=== PATIENT | male | born 1965 | race Caucasian/White ===

== ENCOUNTER 2025-03-07 08:52 | Emergency (ER) | payer OTHER, SELFPAY ==
[2025-03-07 09:10] VITALS: BP 157/93
[2025-03-07 09:33] LABS: Hematocrit 48.6 % (39.0-52.0); Hemoglobin 16.9 g/dL (13.0-18.0); Mean Corp Hgb Conc. 34.8 g/dL (33.0-37.0); Mean Corpuscular Volume 82.8 fL (80.0-94.0); Nucleated Red Blood Cells % 0 % (-); Platelet Count 289 10^3/uL (130-400); Red Cell Dist. Width 12.7 % (11.5-14.5)
[2025-03-07 09:56] LABS: ALT (SGPT) 26 U/L (0-50); AST (SGOT) 34 U/L (17-59); Albumin 5.2 g/dl (3.5-5.0); Alkaline Phosphatase 46 U/L (38-126); Blood Urea Nitrogen 23 mg/dl (9-20); Calcium 10.0 mg/dl (8.4-10.2); Carbon Dioxide 27 mmol/L (22-30); Chloride 102 mmol/L (98-107); Glucose 105 mg/dl (70-99); Potassium 3.6 mmol/L (3.5-5.1); Sodium 139 mmol/L (135-145); Total Protein 7.9 g/dl (6.3-8.2); eGFR > 60.00
[2025-03-07 10:00] LABS: Troponin I < 0.012 ng/ml
[2025-03-07 11:37] VITALS: BP 139/98
--- NOTE | 2025-03-07 11:45 | ED.GENMED ---
History of Present Illness
General
Chief Complaint: Blood Pressure Problem
Source: patient
Exam Limitations: none
Time Seen by Provider: 03/07/25 11:20
History of Present Illness
History of Present Illness:
59-year-old male with history of hypertension on amlodipine 5 mg daily and losartan/HCTZ daily presents with overall not well sensation of the past several days with some fatigue after exertion. He notes a headache. He also notes elevated blood
pressure readings. He was getting readings as high as 170/100. No fever. No rash or tick bites. Spoke with his cardiology office and he was told to take an additional amlodipine yesterday which she did and sometimes this helps however this
morning it was still elevated.
Phy Exam
Physical Exam
Physical Exam:
General: Well-appearing male no acute respiratory distress
HEENT: Normocephalic atraumatic heart: Regular rate and rhythm
Lungs: Clear no wheeze
Extremities: No cyanosis or edema
Course
Orders/Labs/Results
Orders:
Orders
03/07/25 09:05
Electrocardiogram (*1) Urgent
Reason for Study: Vertigo / Dizzy
EKG- Treatment ONCE
03/07/25 09:27
Complete Blood Count/With Diff Urgent
Comprehensive Metabolic Panel Urgent
Troponin I Urgent
03/07/25 09:30
Lyme Progressive Urgent
Comment: LYME PROGRESSIVE ADDED ON BY FLOOR [id number] 03-07-25
03/07/25 11:35
Add On- LAB Urgent
Tests Added?: lyme progressive
03/07/25 11:51
COVID-19 Antigen Urgent
Source: Nasal Swab
Abnormal Lab Results
03/07/25
09:27
BUN 23 H mg/dl
(9-20)
Glucose 105 H mg/dl
(70-99)
Albumin 5.2 H g/dl
(3.5-5.0)
03/07/25 09:27
03/07/25 09:27
Vital Signs
Initial and Last Documented VS:
Initial Vital Signs
Temp Pulse Resp BP Pulse Ox
98.8 F 85 18 157/93 100
03/07/25 09:10 03/07/25 09:10 03/07/25 09:10 03/07/25 09:10 03/07/25 09:10
Last Documented Vital Signs
Temp Pulse Resp BP Pulse Ox
98.8 F 72 18 145/85 100
03/07/25 09:10 03/07/25 13:00 03/07/25 13:00 03/07/25 13:00 03/07/25 11:47
MDM/Problems Addressed
Differential Diagnosis Includes:
Elevated blood pressure readings and not feeling well. Currently no chest pain. This is been going on for several days.
EKG shows sinus rhythm without ischemic changes
Blood pressure at triage was 157/93 will add Lyme test and COVID test
*Pulse Oximetry
SaO2: 100
Oxygen Mode of Delivery: Room air
Patient hypoxic: no
*Critical Care Note
Total Time (30-74mins, 75-104mins- exclusive of procedures): Not Applicable
Update Note
Update Note:
COVID-negative. Blood pressure improved since arrival. Overall nontoxic in appearance. 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 Stable for discharge
ED Attending Note
-
Portions of this chart may have been created with voice recognition software.� Occasional wrong word or��sound alike� substitutions may have occurred due to the inherent limitations of voice recognition software.
Discharge Plan
Departure
Patient Disposition: Home (Routine Discharge)
Date of Disposition: 03/07/25
Time of Disposition: 13:27
Patient with high blood pressure during this ER visit?: No
Discharge Problem:
Hypertension
Instructions: High Blood Pressure (DC)
Referrals:
Alber Byrd MD [Family Provider, Internal Medicine]
Activity Restrictions/Additional Instructions:
Return if needed. Follow-up with your doctors otherwise to further discuss her blood pressure regimen
Interventions
Interventions:
*Risk Screen - Suicide Last Done: 03/07/25 09:10
*General Assessment Last Done: 03/07/25 09:15
*Neglect/Abuse Screening Last Done: 03/07/25 11:47
*ED- Fall Risk Assessment Last Done: 03/07/25 11:47
*ED COVID-19 Vaccine History Last Done: 03/07/25 11:47
ED- Pulmonary Assessment Last Done: 03/07/25 11:48
ED- Neurological Assessment Last Done: 03/07/25 11:22
ED- Cardiac Assessment Last Done: 03/07/25 11:48
Discharge Date and Time
Print Language: NIGERIAN
[2025-03-07 11:48] VITALS: BMI 27.6
[2025-03-07 12:00] VITALS: BP 123/89
[2025-03-07 12:45] LABS: COVID-19 Antigen Negative (Negative)
[2025-03-07 13:00] VITALS: BP 145/85
[2025-03-09 14:16] LABS: Lyme Antibody Screen, EIA Negative (Negative)
== END 2025-03-07 13:45 | disposition home or self-care (01) ==
LOC: EMR 08:52
PROVIDERS: Physician Assistant; EMERGENCY PHYSICIAN Student in an Organized Health Care Education/Training Program; FAMILY PHYSICIAN Internal Medicine
DX: I10 Essential (primary) hypertension (principal); R51.9 Headache, unspecified; Z79.899 Other long term (current) drug therapy; Z11.52 Encounter for screening for COVID-19
CPT/HCPCS: 99284; 80053; 84484; 85025; 86618; 87811; 93005